=== PATIENT | female | born 2005 | race Caucasian/White ===

== ENCOUNTER 2024-03-11 07:09 | Emergency (ER) | payer SELFPAY ==
[2024-03-11] VITALS (7 sets, daily range): BP systolic 109–126; BP diastolic 48–71
[~2024-03-11] VITALS: Ht 165.1 cm; Wt 52.0 kg
[2024-03-11] MEDS ORDERED: POVIDONE IODINE 0.5 OZ/BTL TOP ONE (07:45)
[2024-03-11] MEDS ORDERED: LIDOcaine HCl 1% (Local Anesth.) 20 ML VIAL IJ ONE (07:45)
[2024-03-11] MEDS ORDERED: AMOX/K CLAV875 M1 PO (08:27)
[2024-03-11] MEDS ORDERED: IBUPROFEN600 MG PO (08:27)
[2024-03-11] MEDS ORDERED: PEPCID20 MG PO (08:27)
== END 2024-03-11 08:49 | disposition home or self-care (01) | DRG 605 ==
LOC: ED 07:09
PROC: 0HQLXZZ Repair Left Lower Leg Skin, External Approach (ICD-10-PCS; principal; 2024-03-11)
DX: S81.852A Open bite, left lower leg, initial encounter (principal); W54.0XXA Bitten by dog, initial encounter; Y92.007 Garden or yard of unspecified non-institutional (private) residence as the place of occurrence of the external cause

== ENCOUNTER 2024-03-18 19:38 | Emergency (ER) | payer SELFPAY ==
[~2024-03-18] VITALS: Ht 165.1 cm; Wt 60.0 kg
[~2024-03-18 19:38] MED LIST: AMOX/K CLAV875 M1 PO; IBUPROFEN600 MG PO; PEPCID20 MG PO
[2024-03-18 19:59] VITALS: BP 92/41
[2024-03-18 20:00] VITALS: BP 105/56
[2024-03-18] MEDS ORDERED: BACTRIM DS1 TAB PO (20:09)
[2024-03-18] MEDS ORDERED: CLINDAMYCIN HY150 MG PO (20:09)
[2024-03-18 20:16] VITALS: BP 130/41
[2024-03-18 20:31] VITALS: BP 90/46
[2024-03-18 20:40] VITALS: BP 90/46
== END 2024-03-19 00:53 | disposition home or self-care (01) | DRG 603 ==
LOC: ED 19:38
DX: L03.116 Cellulitis of left lower limb (principal); S81.832A Puncture wound without foreign body, left lower leg, initial encounter; X58.XXXA Exposure to other specified factors, initial encounter